=== PATIENT | female | born 1950 | race American Indian/Alaskan Native ===

== ENCOUNTER 2019-05-14 16:28 | Emergency (ER) | payer MEDICARE ==
--- NOTE | 2019-05-14 16:39 | Event Note ---
ED Screening Note ED Screening Note: 68 yo female with hx of paranoid schizophrenia, currently being treated at [facility] presents with lightheadededness, palpitations, shortness of breath This initial assessment/diagnostic orders/clinical plan/treatment(s) is/are subject to change based on patients health status, clinical progression and re- assessment by fellow clinical providers in the ED. Further treatment and workup at subsequent clinical providers discretion. Patient/guardian urged not to elope from the ED as their condition may be serious if not clinically assessed and managed. Initial orders include: EKG xr labs
--- NOTE | 2019-05-14 17:18 | XRay Report ---
CHEST 2 VIEWS INDICATION / CLINICAL INFORMATION: Dizziness and weakness all day today. COMPARISON: None available. FINDINGS: SUPPORT DEVICES: None. HEART / MEDIASTINUM: The heart size and pulmonary vasculature are normal. There is calcification in t he aortic arch without aneurysm. LUNGS / PLEURA: No significant pulmonary or pleural abnormality. No pneumothorax. ADDITIONAL FINDINGS: There is a moderately severe compression fracture of a lower thoracic vertebral body, probably T12 and likely old. IMPRESSION: No acute findings. Signer Name: Tobi Eddy MD Signed: 05/14/2019 5:14 PM Workstation Name: [id number]
[2019-05-14 17:22] LABS: Basophils % (Auto) 0.5 % (0.0-1.8); Eosinophils % (Auto) 0.6 % (0.0-4.3); Hematocrit 28.9 % (30.3-42.9); Hemoglobin 9.7 gm/dl (10.1-14.3); Lymphocytes % (Auto) 27.5 % (13.4-35.0); Mean Corpuscular HGB Conc 34 % (30-34); Mean Corpuscular Volume 95 fl (79-97); Monocytes # (Auto) 0.7 K/mm3 (0.0-0.8); Platelet Count 296 K/mm3 (140-440); Red Blood Count 3.06 M/mm3 (3.65-5.03); Red Cell Distribution Width 16.5 % (13.2-15.2)
[2019-05-14 17:32] LABS: Alanine Aminotransferase 15 units/L (7-56); Albumin 3.9 g/dL (3.9-5); BUN/Creatinine Ratio 13; Blood Urea Nitrogen 10 mg/dL (7-17); Calcium 8.8 mg/dL (8.4-10.2); Hemolysis Index 11
[2019-05-14] MEDS ORDERED: traMADol 50 MG TAB PO ONE (18:44)
[2019-05-14] MEDS ORDERED: IPRATROPIUM/ALBUTEROL SULFATE 3 ML AMPUL.NEB IH ONE (18:44)
--- NOTE | 2019-05-14 18:58 | Emergency Department Report ---
ED General Adult HPI - General Chief complaint: Weakness Stated complaint: NUMB FEELING/DIZZY Time Seen by Provider: 05/14/19 18:31 Source: patient Mode of arrival: Ambulatory Limitations: No Limitations - History of Present Illness Initial comments: Patient is a 68-year-old female presents emergency room with complaints of shortness of breath that began today while she was standing up in the bathroom. She states that she began to feel dizzy and had a sensation that was room was spinning. She states that she also felt tingling in the bilateral hands and feet and around the mouth. she states she also has pain in her back from her chronic back pain. She states that she feels better now. She denies any dizziness currently. She states that she is currently at [facility] for schizophrenia. She states that she has had symptoms like this in the past. She denies any chest pain, nausea, vomiting, diarrhea, fever, urinary symptoms. She has a past medical history of COPD, asthma, vertebral fracture, PE in 1979 after a . She states that she had an MRI a few months ago and has a known compression fracture, she states that she has not been getting her pain medications at [facility]. She denies any allergies to medications. She denies any cardiac history. - Related Data Previous Rx's Medication Instructions Recorded Last Taken Type Ibuprofen [Motrin 600 MG tab] 600 mg PO Q8H PRN #20 tablet 05/15/19 Unknown Rx Allergies Allergy/AdvReac Type Severity Reaction Status Date / Time No Known Allergies Allergy Unverified 05/14/19 16:29 ED Review of Systems ROS: Stated complaint: NUMB FEELING/DIZZY Other details as noted in HPI Comment: All other systems reviewed and negative ED Past Medical Hx - Past Medical History Hx Hypertension: Yes Hx Arthritis: Yes Hx Asthma: Yes Hx COPD: Yes Additional medical history: REFLUX PE IRRITABLE BOWEL SYNDROME NEUROPATHY HEP - Surgical History Additional Surgical History: C SECTION X2 HYSTO ABD SURGERY BIOPSY - Social History Smoking Status: Never Smoker Substance Use Type: None - Medications Home Medications: Home Medications Medication Instructions Recorded Confirmed Last Taken Type Ibuprofen [Motrin 600 MG tab] 600 mg PO Q8H PRN #20 tablet 05/15/19 Unknown Rx ED Physical Exam - General Limitations: No Limitations General appearance: alert, in no apparent distress - Head Head exam: Present: atraumatic, normocephalic - Eye Eye exam: Present: normal appearance, PERRL, EOMI - ENT ENT exam: Present: mucous membranes moist - Respiratory Respiratory exam: Present: normal lung sounds bilaterally. Absent: respiratory distress, wheezes, rales, rhonchi, stridor, chest wall tenderness, accessory muscle use, decreased breath sounds (slightly decreased bilaterally), prolonged expiratory - Cardiovascular Cardiovascular Exam: Present: regular rate, normal rhythm, normal heart sounds. Absent: systolic murmur, diastolic murmur, rubs, gallop - Neurological Exam Neurological exam: Present: alert, oriented X3, CN II-XII intact, other (5/5 strength in the BUE, 3/5 strength in the BLE, sensation intact throughout, no facial asymmetry, no pronator drift) - Psychiatric Psychiatric exam: Present: normal affect, normal mood - Skin Skin exam: Present: warm, dry, intact ED Course Vital Signs 05/14/19 05/14/19 05/14/19 16:35 16:36 17:29 Temperature 98.6 F 98.6 F Pulse Rate 87 91 H Respiratory 20 20 Rate Blood Pressure 125/68 125/68 134/83 Blood Pressure [Right] O2 Sat by Pulse 98 99 Oximetry 05/14/19 05/14/19 05/14/19 18:00 19:00 19:49 Temperature 98.5 F Pulse Rate 81 81 83 Respiratory 13 12 12 Rate Blood Pressure 124/71 124/71 Blood Pressure 124/71 [Right] O2 Sat by Pulse 99 98 Oximetry 05/14/19 22:46 Temperature 99.1 F Pulse Rate 90 Respiratory 12 Rate Blood Pressure Blood Pressure 130/70 [Right] O2 Sat by Pulse 97 Oximetry ED Medical Decision Making - Lab Data Result diagrams: 05/14/19 16:49 05/14/19 16:49 Lab Results 05/14/19 05/14/19 05/14/19 Range/Units 16:49 16:49 16:49 WBC 7.2 (4.5-11.0) K/mm3 RBC 3.06 L (3.65-5.03) M/mm3 Hgb 9.7 L (10.1-14.3) gm/dl Hct 28.9 L (30.3-42.9) % MCV 95 (79-97) fl MCH 32 (28-32) pg MCHC 34 (30-34) % RDW 16.5 H (13.2-15.2) % Plt Count 296 (140-440) K/mm3 Lymph % (Auto) 27.5 (13.4-35.0) % [place] % (Auto) 10.0 H (0.0-7.3) % Eos % (Auto) 0.6 (0.0-4.3) % Baso % (Auto) 0.5 (0.0-1.8) % Lymph # 2.0 (1.2-5.4) K/mm3 [place] # 0.7 (0.0-0.8) K/mm3 Eos # 0.0 (0.0-0.4) K/mm3 Baso # 0.0 (0.0-0.1) K/mm3 Seg Neutrophils % 61.4 (40.0-70.0) % Seg Neutrophils # 4.4 (1.8-7.7) K/mm3 D-Dimer (0-234) ng/mlDDU Sodium 141 (137-145) mmol/L Potassium 4.8 (3.6-5.0) mmol/L Chloride 105.4 (98-107) mmol/L Carbon Dioxide 24 (22-30) mmol/L Anion Gap 16 mmol/L BUN 10 (7-17) mg/dL Creatinine 0.8 (0.7-1.2) mg/dL Estimated GFR > 60 ml/min BUN/Creatinine Ratio 13 % Glucose 112 H (65-100) mg/dL Calcium 8.8 (8.4-10.2) mg/dL Total Bilirubin < 0.20 (0.1-1.2) mg/dL AST 18 (5-40) units/L ALT 15 (7-56) units/L Alkaline Phosphatase 101 (35-129) units/L Troponin T < 0.010 (0.00-0.029) ng/mL Total Protein 6.3 (6.3-8.2) g/dL Albumin 3.9 (3.9-5) g/dL Albumin/Globulin Ratio 1.6 % Urine Color (Yellow) Urine Turbidity (Clear) Urine pH (5.0-7.0) Ur Specific [place] (1.003-1.030) Urine Protein (Negative) mg/dL Urine Glucose (UA) (Negative) mg/dL Urine Ketones (Negative) mg/dL Urine Blood (Negative) Urine Nitrite (Negative) Urine Bilirubin (Negative) Urine Urobilinogen (<2.0) mg/dL Ur Leukocyte Esterase (Negative) Urine WBC (Auto) (0.0-6.0) /HPF Urine RBC (Auto) (0.0-6.0) /HPF U Epithel Cells (Auto) (0-13.0) /HPF 05/14/19 05/14/19 Range/Units 19:17 19:39 WBC (4.5-11.0) K/mm3 RBC (3.65-5.03) M/mm3 Hgb (10.1-14.3) gm/dl Hct (30.3-42.9) % MCV (79-97) fl MCH (28-32) pg MCHC (30-34) % RDW (13.2-15.2) % Plt Count (140-440) K/mm3 Lymph % (Auto) (13.4-35.0) % [place] % (Auto) (0.0-7.3) % Eos % (Auto) (0.0-4.3) % Baso % (Auto) (0.0-1.8) % Lymph # (1.2-5.4) K/mm3 [place] # (0.0-0.8) K/mm3 Eos # (0.0-0.4) K/mm3 Baso # (0.0-0.1) K/mm3 Seg Neutrophils % (40.0-70.0) % Seg Neutrophils # (1.8-7.7) K/mm3 D-Dimer 249.17 H (0-234) ng/mlDDU Sodium (137-145) mmol/L Potassium (3.6-5.0) mmol/L Chloride (98-107) mmol/L Carbon Dioxide (22-30) mmol/L Anion Gap mmol/L BUN (7-17) mg/dL Creatinine (0.7-1.2) mg/dL Estimated GFR ml/min BUN/Creatinine Ratio % Glucose (65-100) mg/dL Calcium (8.4-10.2) mg/dL Total Bilirubin (0.1-1.2) mg/dL AST (5-40) units/L ALT (7-56) units/L Alkaline Phosphatase (35-129) units/L Troponin T (0.00-0.029) ng/mL Total Protein (6.3-8.2) g/dL Albumin (3.9-5) g/dL Albumin/Globulin Ratio % Urine Color Yellow (Yellow) Urine Turbidity Clear (Clear) Urine pH 6.0 (5.0-7.0) Ur Specific [place] 1.017 (1.003-1.030) Urine Protein <15 mg/dl (Negative) mg/dL Urine Glucose (UA) Neg (Negative) mg/dL Urine Ketones Neg (Negative) mg/dL Urine Blood Neg (Negative) Urine Nitrite Neg (Negative) Urine Bilirubin Neg (Negative) Urine Urobilinogen < 2.0 (<2.0) mg/dL Ur Leukocyte Esterase Mod (Negative) Urine WBC (Auto) 5.0 (0.0-6.0) /HPF Urine RBC (Auto) 5.0 (0.0-6.0) /HPF U Epithel Cells (Auto) < 1.0 (0-13.0) /HPF Vital Signs 05/14/19 05/14/19 05/14/19 16:35 16:36 17:29 Temperature 98.6 F 98.6 F Pulse Rate 87 91 H Respiratory 20 20 Rate Blood Pressure 125/68 125/68 134/83 Blood Pressure [Right] O2 Sat by Pulse 98 99 Oximetry 05/14/19 05/14/19 05/14/19 18:00 19:00 19:49 Temperature 98.5 F Pulse Rate 81 81 83 Respiratory 13 12 12 Rate Blood Pressure 124/71 124/71 Blood Pressure 124/71 [Right] O2 Sat by Pulse 99 98 Oximetry 05/14/19 22:46 Temperature 99.1 F Pulse Rate 90 Respiratory 12 Rate Blood Pressure Blood Pressure 130/70 [Right] O2 Sat by Pulse 97 Oximetry - EKG Data EKG shows normal: sinus rhythm, axis, intervals, QRS complexes, ST-T waves Rate: normal - Radiology Data Radiology results: report reviewed CHEST 2 VIEWS INDICATION / CLINICAL INFORMATION: Dizziness and weakness all day today. COMPARISON: None available. FINDINGS: SUPPORT DEVICES: None. HEART / MEDIASTINUM: The heart size and pulmonary vasculature are normal. There is calcification in the aortic arch without aneurysm. LUNGS / PLEURA: No significant pulmonary or pleural abnormality. No pneumothorax. ADDITIONAL FINDINGS: There is a moderately severe compression fracture of a lower thoracic vertebral body, probably T12 and likely old. IMPRESSION: No acute findings. Signer Name: Tobi Eddy MD Signed: 05/14/2019 5:14 PM Workstation Name: [id number] Transcribed By: RT Dictated By: Tobi Eddy MD Electronically Authenticated By: Tobi Eddy MD Signed Date/Time: 05/14/194 DD/ 11 TD/TT: CT angiography of the chest with 2-D reconstructions INDICATION: Shortness of breath and elevated d-dimer Thin section axial images were obtained as well as 2-D reformatted MIP images in all 3 planes FINDINGS: There is no hilar or mediastinal adenopathy. No pleural or pericardial effusion. Lung windows show no nodules, masses or infiltrates. There is no thoracic aortic aneurysm or dissection present. Routine axial images as well as 2-D reconstructions through the pulmonary arteries show no evidence of emboli. IMPRESSION: Negative chest CTA Automated exposure control was utilized to diminish radiation dose. Signer Name: David Kay MD Signed: 05/14/2019 11:48 PM Workstation Name: [id number] Transcribed By: AGUILA Dictated By: David Kay MD Electronically Authenticated By: David Kay MD Signed Date/Time: 05/14/192347 DD/ 45 TD/TT: CT BRAIN: 05/14/2019 INDICATION / CLINICAL INFORMATION: dizziness, tingling bilateral hands/feet. COMPARISON: None available. FINDINGS: BRAIN/INTRACRANIAL STRUCTURES: Unenhanced CT images of the brain demonstrate no evidence of acute intracranial abnormality. Ventricles and sulci are slightly prominent in size, consistent with age-related atrophic change. There is no evidence of acute ischemic injury, hemorrhage, or mass. There are no abnormal extra- axial fluid collections. 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 EXTRACRANIAL STRUCTURES: Unremarkable. IMPRESSION: No acute abnormality. All CT scans at this location are performed using dose reduction to ALARA by means of automated exposure control. Signer Name: Tavares Garcia MD Signed: 05/14/2019 9:05 PM Workstation Name: [id number] Transcribed By: POLLY Dictated By: Tavares Garcia MD Electronically Authenticated By: Tavares Garcia MD Signed Date/Time: 05/14/192104 DD/ 00 TD/TT: - Medical Decision Making Patient is a 68-year-old female presents emergency room with complaints of shortness of breath that began today while she was standing up in the bathroom. She states that she began to feel dizzy and had a sensation that was room was spinning. She states that she also felt tingling in the bilateral hands and feet and around the mouth. she states she also has pain in her back from her chronic back pain. She states that she feels better now. She denies any dizziness currently. She states that she is currently at [facility] for schizophrenia. She states that she has had symptoms like this in the past. She denies any chest pain, nausea, vomiting, diarrhea, fever, urinary symptoms. She has a past medical history of COPD, asthma, vertebral fracture, PE in 1979 after a . She states that she had an MRI a few months ago and has a known compression fracture, she states that she has not been getting her pain medications at [facility]. She denies any allergies to medications. She denies any cardiac history. Vitals are normal. Labs significant for elevated d- dimer. Stable anemia. UA within normal limits. EKG within normal limits. Chest x-ray, CT head, CT angio chest wall with no acute process. Breath sounds are clear bilaterally, oxygen saturation is normal, respiratory rate is normal. She does not currently feel short of breath. Patient's pain treated with tramadol. Patient states that she is feeling much better. She states that the main reason she came to the emergency department was due to her chronic back pain to get relief as she is currently at [facility] and does not have pain medications. Patient is requesting a prescription for ibuprofen because she states it helps her pain and she needs a prescription to be able to take it while she is at [facility]. advised pt Please follow-up with your primary care doctor. Please follow-up with your pain specialist. Return to the emergency room for any new or worsening symptoms. pt discharged back to [facility]. - Differential Diagnosis ACS, PE, CVA, SDH, SAH, ICH, MS, asthma, PNA, UTI, neuropathy, electrolytes Critical care attestation.: If time is entered above; I have spent that time in minutes in the direct care of this critically ill patient, excluding procedure time. ED Disposition Clinical Impression: SOB (shortness of breath), Tingling Chronic back pain Qualifiers: Back pain location: low back pain Back pain laterality: bilateral Sciatica presence: without sciatica Qualified Code(s): M54.5 - Low back pain Disposition: DC/TX-70 ANOTHER TYPE HLTHCARE Is pt being admited?: No Does the pt Need Aspirin: No Condition: Stable Instructions: Dyspnea (ED), Chronic Back Pain (ED) Additional Instructions: Please follow-up with your primary care doctor. Please follow-up with your pain specialist. Return to the emergency room for any new or worsening symptoms. Prescriptions: Ibuprofen [Motrin 600 MG tab] 600 mg PO Q8H PRN #20 tablet PRN Reason: Pain Referrals: PRIMARY CARE, [Referring] - 2-3 Days your, pain specialist [Other] - 2-3 Days Time of Disposition: 00:18 Print Language: MICRONESIAN
[2019-05-14 19:34] LABS: Bilirubin,Urine NEG (Negative); Blood,Urine NEG (Negative); Color,Urine Yellow (Yellow); Protein,Urine <15 mg/dL mg/dL (Negative); Urobilinogen,Urine < 2.0 mg/dL (<2.0)
--- NOTE | 2019-05-14 21:09 | Cat Scan Report ---
CT BRAIN: 05/14/2019 INDICATION / CLINICAL INFORMATION: dizziness, tingling bilateral hands/feet. COMPARISON: None available. FINDINGS: BRAIN/INTRACRANIAL STRUCTURES: Unenhanced CT images of the brain demonstrate no evidence of acute int racranial abnormality. Ventricles and sulci are slightly prominent in size, consistent with age-related atrophic change. There is no evidence of acute ischemic injury, hemorrhage, or mass. There are no abnormal extra-axial fluid collections. Incidental note is made of a linear lipoma overlying the corpus callosum. This is a congenital varian t. EXTRACRANIAL STRUCTURES: Unremarkable. IMPRESSION: No acute abnormality. All CT scans at this location are performed using dose reduction to ALARA by means of automated expos ure control. Signer Name: Tavares Garcia MD Signed: 05/14/2019 9:05 PM Workstation Name: [id number]
[2019-05-14 22:46] VITALS: BP 130/70
--- NOTE | 2019-05-14 23:52 | Cat Scan Report ---
CT angiography of the chest with 2-D reconstructions INDICATION: Shortness of breath and elevated d-dimer Thin section axial images were obtained as well as 2-D reformatted MIP images in all 3 planes FINDINGS: There is no hilar or mediastinal adenopathy. No pleural or pericardial effusion. Lung windo ws show no nodules, masses or infiltrates. There is no thoracic aortic aneurysm or dissection present . Routine axial images as well as 2-D reconstructions through the pulmonary arteries show no evidence of emboli. IMPRESSION: Negative chest CTA Automated exposure control was utilized to diminish radiation dose. Signer Name: David Kay MD Signed: 05/14/2019 11:48 PM Workstation Name: [id number]
== END 2019-05-15 01:06 | disposition other institution (70) ==
LOC: ED 16:28
DX: R06.02 Shortness of breath (principal); R20.2 Paresthesia of skin; M54.9 Dorsalgia, unspecified; G89.29 Other chronic pain; I10 Essential (primary) hypertension; M19.90 Unspecified osteoarthritis, unspecified site; J44.9 Chronic obstructive pulmonary disease, unspecified; K58.8 Other irritable bowel syndrome; G62.9 Polyneuropathy, unspecified; Z98.890 Other specified postprocedural states; Z79.1 Long term (current) use of non-steroidal anti-inflammatories (NSAID)
CPT/HCPCS: 36415; 70450; 71046; 71275; 80053; 81001; 84484; 85025; 85379; 93005; 93010; 99284; Q9967

== ENCOUNTER 2019-05-21 11:07 | Emergency (ER) | payer MEDICARE ==
--- NOTE | 2019-05-21 12:04 | Event Note ---
ED Screening Note Date of service: 05/21/19 Time: 12:01 ED Screening Note: 68 y.o. F. that presents to the ER with right foot pain for 2 days. Patient states a person with a prosthetic accidental stepped on her foot 2 days ago. Reports dorsal swelling and and pain with weight bearing. This initial assessment/diagnostic orders/clinical plan/treatment(s) is/are subject to change based on patients health status, clinical progression and re- assessment by fellow clinical providers in the ED. Further treatment and workup at subsequent clinical providers discretion. Patient/guardian urged not to elope from the ED as their condition may be serious if not clinically assessed and managed. Initial orders include: XR right foot
--- NOTE | 2019-05-21 13:04 | XRay Report ---
RIGHT FOOT 3 VIEWS INDICATION / CLINICAL INFORMATION: swelling and pain COMPARISON: None available. FINDINGS: BONES / JOINT(S): There is osteopenia. No acute fracture is seen. There are hammertoe deformities of the second third and fourth toes. SOFT TISSUES: There is soft tissue swelling. ADDITIONAL FINDINGS: None. Signer Name: Yao Aguilera MD Signed: 05/21/2019 1:00 PM Workstation Name: [id number]
--- NOTE | 2019-05-21 14:04 | Emergency Department Report ---
ED Lower Extremity HPI - General Chief Complaint: Extremity Injury, Lower Stated Complaint: RIGHT FOOT PAIN Time Seen by Provider: 05/21/19 12:01 Source: patient Mode of arrival: Ambulatory Limitations: No Limitations - History of Present Illness Initial Comments: This is a 68-year-old female who presents the ED complaining of right anterior foot pain x2 to 3 days. Patient states a couple of days ago someone with a prosthetic leg stepped on her foot. Patient states she has noticed some swelling the past day and a half. Patient denies ability to walk. Patient states that she is having localized pain to the anterior foot region. Patient admits mild swelling to the area. She denies burping skin of the foot MD Complaint: foot injury Injury: Foot: Right - Related Data Previous Rx's Medication Instructions Recorded Last Taken Type Ibuprofen [Motrin 600 MG tab] 600 mg PO Q8H PRN #20 tablet 05/15/19 Unknown Rx HYDROcodone/APAP 5-325 [[place] 1 each PO Q6H #10 tablet 05/21/19 Unknown Rx 5/325] Ibuprofen [Motrin] 800 mg PO Q8HR #30 tablet 05/21/19 Unknown Rx Allergies Allergy/AdvReac Type Severity Reaction Status Date / Time No Known Allergies Allergy Unverified 05/14/19 16:29 ED Review of Systems ROS: Stated complaint: RIGHT FOOT PAIN Other details as noted in HPI Comment: All other systems reviewed and negative ED Past Medical Hx - Past Medical History Previous Medical History?: Yes Hx Hypertension: Yes Hx Arthritis: Yes Hx Asthma: Yes Hx COPD: Yes Additional medical history: REFLUX PE IRRITABLE BOWEL SYNDROME NEUROPATHY HEP - Surgical History Past Surgical History?: Yes Additional Surgical History: C SECTION X2 HYSTO ABD SURGERY BIOPSY - Social History Smoking Status: Former Smoker Substance Use Type: None - Medications Home Medications: Home Medications Medication Instructions Recorded Confirmed Last Taken Type Ibuprofen [Motrin 600 MG tab] 600 mg PO Q8H PRN #20 tablet 05/15/19 Unknown Rx HYDROcodone/APAP 5-325 [[place] 1 each PO Q6H #10 tablet 05/21/19 Unknown Rx 5/325] Ibuprofen [Motrin] 800 mg PO Q8HR #30 tablet 05/21/19 Unknown Rx ED Physical Exam - General Limitations: No Limitations General appearance: alert, in no apparent distress - Head Head exam: Present: atraumatic, normocephalic - Eye Eye exam: Present: normal appearance - ENT ENT exam: Present: mucous membranes moist - Neck Neck exam: Present: normal inspection - Respiratory Respiratory exam: Present: normal lung sounds bilaterally. Absent: respiratory distress - Cardiovascular Cardiovascular Exam: Present: regular rate, normal rhythm. Absent: systolic murmur, diastolic murmur, rubs, gallop - GI/Abdominal GI/Abdominal exam: Present: soft, normal bowel sounds - Extremities Exam Extremities exam: Present: normal inspection, full ROM (Of the foot bilaterally,), tenderness (To palpation of the anterior aspect of the right foot), other (Minimal swelling of the anterior foot, tender to palpation, no indentation, no laceration). Absent: joint swelling, calf tenderness - Back Exam Back exam: Present: normal inspection - Neurological Exam Neurological exam: Present: alert, oriented X3, CN II-XII intact, normal gait - Psychiatric Psychiatric exam: Present: normal affect, normal mood - Skin Skin exam: Present: warm, dry, intact, normal color. Absent: rash ED Course Vital Signs 05/21/19 05/21/19 12:02 15:53 Temperature 98.3 F Pulse Rate 82 83 Respiratory 18 Rate Blood Pressure 146/82 171/86 O2 Sat by Pulse 99 99 Oximetry ED Lower Extremity MDM - Radiology Data Radiology results: report reviewed, image reviewed Fluoro Time In Minutes: RIGHT FOOT 3 VIEWS INDICATION / CLINICAL INFORMATION: swelling and pain COMPARISON: None available. FINDINGS: BONES / JOINT(S): There is osteopenia. No acute fracture is seen. There are hammertoe deformities of the second third and fourth toes. SOFT TISSUES: There is soft tissue swelling. ADDITIONAL FINDINGS: None. Signer Name: Yao Aguilera MD Signed: 05/21/2019 1:00 PM Workstation Name: [id number] - Medical Decision Making 68-year-old female presents with right foot pain. X-rays obtained. X-ray shows no acute fractures see report above. I discussed findings with the patient. Vital signs are normal patient is no acute distress. I discussed with patient to follow-up with primary care physician. Critical care attestation.: If time is entered above; I have spent that time in minutes in the direct care of this critically ill patient, excluding procedure time. ED Disposition Clinical Impression: Right foot strain Disposition: DC-01 TO HOME OR SELFCARE Is pt being admited?: No Does the pt Need Aspirin: No Condition: Stable Instructions: Foot Sprain (ED), Arthralgia (ED) Additional Instructions: Make sure to follow up with the primary care physician as discussed. Take all your medications as you've been prescribed. If you have any worsening symptoms or develop new symptoms please return to ED immediately. Prescriptions: Ibuprofen [Motrin] 800 mg PO Q8HR #30 tablet HYDROcodone/APAP 5-325 [[place] 5/325] 1 each PO Q6H #10 tablet Referrals: KATIA WRIGHT MD [Other] - 3-5 Days [facility] [Outside] - 3-5 Days [facility] [Outside] - 3-5 Days [facility] [Outside] - 3-5 Days Forms: Work/School Release Form Time of Disposition: 15:08
[2019-05-21 16:12] VITALS: BP 171/86
== END 2019-05-21 15:53 | disposition home or self-care (01) ==
LOC: ED 11:07
DX: S96.811A Strain of other specified muscles and tendons at ankle and foot level, right foot, initial encounter (principal); I10 Essential (primary) hypertension; J44.9 Chronic obstructive pulmonary disease, unspecified; M19.90 Unspecified osteoarthritis, unspecified site; Z87.891 Personal history of nicotine dependence; Z98.890 Other specified postprocedural states; Z79.899 Other long term (current) drug therapy; X58.XXXA Exposure to other specified factors, initial encounter; Y93.89 Activity, other specified; Y92.89 Other specified places as the place of occurrence of the external cause; Y99.8 Other external cause status